=== PATIENT | male | born 1960 | race African-American/Black ===

== ENCOUNTER 2017-11-06 23:19 | Emergency (ER) | payer MEDICAID, OTHER ==
[~2017-11-06] VITALS: Ht 180.3 cm; Wt 127.3 kg
[2017-11-06] MEDS ORDERED: HYDR-4031 PO (23:31)
[2017-11-06] MEDS ORDERED: ASPI-1182 PO (23:31)
[2017-11-06] MEDS ORDERED: HYDR25TA PO (23:31)
[2017-11-07] MEDS ORDERED: NAPROXEN 250 MG TABLET PO ONE (01:30)
[2017-11-07] MEDS ORDERED: AMOX TR/POT CLAV 875 MG/125 MG TABLET PO ONE (02:45)
[2017-11-07 03:03] VITALS: BP 132/88
== END 2017-11-07 03:25 | disposition home or self-care (01) ==
LOC: EMS 23:19
DX: H66.92 Otitis media, unspecified, left ear (principal); H72.2X2 Other marginal perforations of tympanic membrane, left ear; I10 Essential (primary) hypertension; F17.210 Nicotine dependence, cigarettes, uncomplicated
CPT/HCPCS: 99283

== ENCOUNTER 2022-02-18 14:38 | Emergency (ER) | payer OTHER ==
[~2022-02-18] VITALS: Ht 180.3 cm; Wt 125.0 kg
[~2022-02-18 14:38] MED LIST: ASPI-1444 PO; HYDR-4808 PO; HYDR25TA2 PO
[2022-02-18] MEDS ORDERED: ATOR20TA65 PO (14:43)
[2022-02-18] MEDS ORDERED: LISI20TA24 PO (14:43)
[2022-02-18] MEDS ORDERED: FLUT12AE20 PO (14:43)
[2022-02-18] MEDS ORDERED: CARV12.530 PO (14:43)
[2022-02-18] MEDS ORDERED: SPIR-37 PO (14:43)
[2022-02-18] MEDS ORDERED: FURO40TA5 PO (14:43)
[2022-02-18] MEDS ORDERED: KETOROLAC TROMETHAMINE 30 MG/ML VIAL IVP ONE (15:30)
[2022-02-18] MEDS ORDERED: SODIUM CHLORIDE 0.9% 1,000 ML IV ONE (15:30)
[2022-02-18 15:38] LABS: BASOPHILS % (AUTO) 0.6 % (0.0-2.0); EOSINOPHILS % (AUTO) 3.6 % (1.0-6.0); HEMATOCRIT 45.7 % (41-53); HEMOGLOBIN 14.7 g/dL (13.5-17.5); LYMPHOCYTES # (AUTO) 1.4 K/uL (1.0-4.8); LYMPHOCYTES % (AUTO) 32.3 % (22.0-44.0); MEAN CORPUSCULAR HEMOGLOBIN 30.5 pg (26.0-34.0); MEAN CORPUSCULAR HGB CONC 32.3 G/dL (31.0-37.0); MEAN CORPUSCULAR VOLUME 94 fL (80-100); MONOCYTES # (AUTO) 0.5 K/uL (0.1-1.0); MONOCYTES % (AUTO) 10.3 % (2.0-9.0); NEUTROPHILS # (AUTO) 2.3 K/uL (1.8-7.7); NEUTROPHILS % (AUTO) 53.2 % (40.0-70.0); PLATELET COUNT (AUTO) 187 K/uL (150-450); RED BLOOD CELL COUNT(AUTO) 4.84 MIL/uL (4.50-5.90); RED CELL DISTRIBUTION WIDTH 15.5 % (11.5-14.5)
[2022-02-18 15:44] LABS: ANION GAP 6 mmol/L (8-16); CALCIUM, TOTAL 9.1 mg/dL (8.8-10.5); CARBON DIOXIDE 26 mmol/L (22-29); CHLORIDE 106 mmol/L (98-107); GLUCOSE,RANDOM 116 mg/dL (70-110); POTASSIUM 3.5 mmol/L (3.5-5.1); SODIUM SERUM 138 mmol/L (136-145); UREA NITROGEN, BLOOD 9 mg/dL (7-18)
[2022-02-18 15:46] LABS: GLOMERULAR FILTR. RATE CALC > 60 mL/min (>60)
[2022-02-18 15:50] LABS: ALANINE AMINOTRANSFERASE 19 U/L (12-78); ALKALINE PHOSPHATASE 52 U/L (46-116); ASPARTATE AMINOTRANSFERASE 31 U/L (15-37); LIPASE 101 U/L (73-393)
[2022-02-18 16:46] LABS: APPEARANCE,URINE CLEAR (CLEAR); GLUCOSE, URINE (UA) NEGATIVE (NEGATIVE); KETONES,URINE NEGATIVE (NEGATIVE); LEUKOCYTE ESTERASE ,URINE SMALL (NEGATIVE); NITRATE,URINE NEGATIVE (NEGATIVE); OCCULT BLOOD,URINE MODERATE (NEGATIVE); PROTEIN,URINE 100-200,SEE CONFIRM mg/dL (NEGATIVE); SPECIFIC GRAVITIY, URINE 1.042 (1.003-1.030)
[2022-02-18 16:54] LABS: BILIRUBIN,URINE SMALL (NEGATIVE)
[2022-02-18 17:06] LABS: BACTERIA,URINE Few /HPF (None Seen)
[2022-02-18 17:07] LABS: AMORPHOUS SEDIMENT,UR Few /LPF (None Seen); SULFOSALICYLIC ACID,URINE 2+ (Negative); YEAST,URINE Few /HPF (None Seen)
[2022-02-18] MEDS ORDERED: CEFD300C18 PO (17:45)
[2022-02-18] MEDS ORDERED: CefTRIAXone 1 GM/DEXTROSE 50 ML IV ONE (17:45)
[2022-02-18 18:25] VITALS: BP 121/82
== END 2022-02-18 18:55 | disposition home or self-care (01) ==
LOC: EMS 14:44
DX: N39.0 Urinary tract infection, site not specified (principal); E78.00 Pure hypercholesterolemia, unspecified; F10.20 Alcohol dependence, uncomplicated; F17.210 Nicotine dependence, cigarettes, uncomplicated; I11.0 Hypertensive heart disease with heart failure; I50.9 Heart failure, unspecified; R10.9 Unspecified abdominal pain
CPT/HCPCS: 99284; 74176; 96365; 96361; 96375; 80053; 81001; 81002; 83690; 85025; 36415; 87086; J1885; J7030; 96374

== ENCOUNTER 2022-03-01 07:06 | Emergency (ER) | payer OTHER ==
[~2022-03-01] VITALS: Ht 180.3 cm; Wt 104.5 kg
[~2022-03-01 07:06] MED LIST changes: +ATOR20TA65 PO; +CARV12.530 PO; +CEFD300C18 PO; +FLUT12AE20 PO; +FURO40TA5 PO; -HYDR-4808 PO; -HYDR25TA2 PO; +LISI20TA24 PO; +SPIR-37 PO
[2022-03-01 10:17] LABS: APPEARANCE,URINE CLEAR (CLEAR); BILIRUBIN,URINE NEGATIVE (NEGATIVE); GLUCOSE, URINE (UA) NEGATIVE (NEGATIVE); KETONES,URINE NEGATIVE (NEGATIVE); LEUKOCYTE ESTERASE ,URINE NEGATIVE (NEGATIVE); NITRATE,URINE NEGATIVE (NEGATIVE); OCCULT BLOOD,URINE MODERATE (NEGATIVE); PROTEIN,URINE 30-70 mg/dL (NEGATIVE); SPECIFIC GRAVITIY, URINE 1.024 (1.003-1.030)
[2022-03-01 10:22] LABS: EOSINOPHILS % (AUTO) 3.3 % (1.0-6.0); HEMATOCRIT 43.9 % (41-53); HEMOGLOBIN 14.3 g/dL (13.5-17.5); LYMPHOCYTES # (AUTO) 1.6 K/uL (1.0-4.8); LYMPHOCYTES % (AUTO) 27.8 % (22.0-44.0); MEAN CORPUSCULAR HEMOGLOBIN 30.6 pg (26.0-34.0); MEAN CORPUSCULAR HGB CONC 32.5 G/dL (31.0-37.0); MEAN CORPUSCULAR VOLUME 94 fL (80-100); MONOCYTES # (AUTO) 0.6 K/uL (0.1-1.0); MONOCYTES % (AUTO) 11.2 % (2.0-9.0); NEUTROPHILS # (AUTO) 3.3 K/uL (1.8-7.7); NEUTROPHILS % (AUTO) 56.7 % (40.0-70.0); PLATELET COUNT (AUTO) 151 K/uL (150-450); RED BLOOD CELL COUNT(AUTO) 4.67 MIL/uL (4.50-5.90); RED CELL DISTRIBUTION WIDTH 15.7 % (11.5-14.5)
[2022-03-01 10:28] LABS: ANION GAP 6 mmol/L (8-16); CARBON DIOXIDE 26 mmol/L (22-29); CHLORIDE 105 mmol/L (98-107); CREATININE 1.02 mg/dL (0.60-1.30); GLUCOSE,RANDOM 92 mg/dL (70-110); POTASSIUM 3.6 mmol/L (3.5-5.1); SODIUM SERUM 137 mmol/L (136-145); UREA NITROGEN, BLOOD 8 mg/dL (7-18)
[2022-03-01 10:32] LABS: GLOMERULAR FILTR. RATE CALC > 60 mL/min (>60)
[2022-03-01 10:35] LABS: ALANINE AMINOTRANSFERASE 22 U/L (12-78); ALBUMIN 2.9 g/dL (3.4-5.0); ALKALINE PHOSPHATASE 53 U/L (46-116); ASPARTATE AMINOTRANSFERASE 13 U/L (15-37); TOTAL PROTEIN, SERUM 6.6 g/dL (6.4-8.2)
[2022-03-01 10:44] LABS: BACTERIA,URINE None Seen /HPF (None Seen); WBC,URINE None Seen /HPF (0-5)
[2022-03-01 10:45] LABS: CALCIUM OXALATE CRYSTALS,UR Few /LPF (None Seen)
[2022-03-01] MEDS ORDERED: KETOROLAC TROMETHAMINE 30 MG/ML VIAL IM ONE (13:15)
[2022-03-01 13:36] VITALS: BP 145/90
[2022-03-01] MEDS ORDERED: CYCL-448 PO (14:03)
== END 2022-03-01 14:11 | disposition home or self-care (01) ==
LOC: EMS 07:06
DX: M54.9 Dorsalgia, unspecified (principal); I11.0 Hypertensive heart disease with heart failure; I50.9 Heart failure, unspecified; E78.00 Pure hypercholesterolemia, unspecified; F17.210 Nicotine dependence, cigarettes, uncomplicated; Z89.612 Acquired absence of left leg above knee
CPT/HCPCS: 99284; 80053; 81001; 85025; 36415; 74022; 96372; J1885

== ENCOUNTER 2022-04-23 15:26 | Emergency (ER) | payer OTHER ==
[~2022-04-23] VITALS: Ht 180.3 cm; Wt 109.1 kg
[~2022-04-23 15:26] MED LIST changes: +CYCL-448 PO
[2022-04-23 17:27] LABS: BASOPHILS % (AUTO) 0.7 % (0.0-2.0); EOSINOPHILS % (AUTO) 2.5 % (1.0-6.0); HEMATOCRIT 39.9 % (41-53); HEMOGLOBIN 12.9 g/dL (13.5-17.5); LYMPHOCYTES # (AUTO) 1.3 K/uL (1.0-4.8); LYMPHOCYTES % (AUTO) 18.8 % (22.0-44.0); MEAN CORPUSCULAR HGB CONC 32.3 G/dL (31.0-37.0); MEAN CORPUSCULAR VOLUME 96 fL (80-100); MONOCYTES # (AUTO) 0.7 K/uL (0.1-1.0); NEUTROPHILS # (AUTO) 4.8 K/uL (1.8-7.7); PLATELET COUNT (AUTO) 240 K/uL (150-450); RED BLOOD CELL COUNT(AUTO) 4.16 MIL/uL (4.50-5.90); RED CELL DISTRIBUTION WIDTH 17.6 % (11.5-14.5)
[2022-04-23 17:40] LABS: PROTHROMBIN TIME 10.9 SEC (9.4-11.6)
[2022-04-23 17:42] LABS: ANION GAP 9 mmol/L (8-16); CARBON DIOXIDE 22 mmol/L (22-29); CHLORIDE 106 mmol/L (98-107); CREATININE 0.97 mg/dL (0.60-1.30); GLOMERULAR FILTR. RATE CALC > 60 mL/min (>60); GLUCOSE,RANDOM 98 mg/dL (70-110); POTASSIUM 3.8 mmol/L (3.5-5.1); SODIUM SERUM 137 mmol/L (136-145); UREA NITROGEN, BLOOD 8 mg/dL (7-18)
[2022-04-23 17:44] LABS: B-TYPE NATRIURETIC PEPTIDE 778 pg/mL (0-100)
[2022-04-23 17:47] LABS: ALANINE AMINOTRANSFERASE 10 U/L (12-78); ALBUMIN 2.7 g/dL (3.4-5.0); ALKALINE PHOSPHATASE 68 U/L (46-116); ASPARTATE AMINOTRANSFERASE 19 U/L (15-37); BILIRUBIN,TOTAL 0.7 mg/dL (0.1-1.0); TOTAL PROTEIN, SERUM 6.7 g/dL (6.4-8.2)
[2022-04-23 19:05] VITALS: BP 133/89
[2022-04-23] MEDS ORDERED: FUROSEMIDE 20 MG/2 ML VIAL IVP ONE (21:45)
== END 2022-04-23 22:28 | disposition home or self-care (01) ==
LOC: EMS 15:28
DX: I11.0 Hypertensive heart disease with heart failure (principal); I50.9 Heart failure, unspecified; E78.00 Pure hypercholesterolemia, unspecified; F10.20 Alcohol dependence, uncomplicated; F17.210 Nicotine dependence, cigarettes, uncomplicated
CPT/HCPCS: 71045; 80053; 82550; 83880; 84484; 85025; 85379; 85610; 85730; 87040; 93005; 99285; 36415-L1; 36415-TC

== ENCOUNTER 2023-02-21 13:29 | Inpatient (IN) | payer OTHER ==
[~2023-02-21] VITALS: Ht 172.7 cm; Wt 88.6 kg
[2023-02-21] MEDS ORDERED: BUPR-113 PO (13:44)
[2023-02-21] MEDS ORDERED: IPRATROPIUM BROMIDE 0.5 MG/2.5 ML NEB SOLUTION NEB ONE (14:15)
[2023-02-21] MEDS ORDERED: MethylPREDNISolone SOD SUCC 125 MG/2 ML VIAL IVP ONE (14:15)
[2023-02-21] MEDS ORDERED: ALBUTEROL SULFATE HFA 90 MCG/PUFF 8 GM INHALER IH ONE (14:15)
[2023-02-21] MEDS ORDERED: FUROSEMIDE 40 MG/4 ML VIAL IVP ONE (14:15)
[2023-02-21 14:24] LABS: BASOPHILS % (AUTO) 0.6 % (0.0-2.0); HEMATOCRIT 36.6 % (41-53); HEMOGLOBIN 11.6 g/dL (13.5-17.5); LYMPHOCYTES % (AUTO) 14.5 % (22.0-44.0); MEAN CORPUSCULAR HEMOGLOBIN 27.5 pg (26.0-34.0); MEAN CORPUSCULAR HGB CONC 31.6 G/dL (31.0-37.0); MEAN CORPUSCULAR VOLUME 87 fL (80-100); MONOCYTES # (AUTO) 0.4 K/uL (0.1-1.0); MONOCYTES % (AUTO) 6.7 % (2.0-9.0); NEUTROPHILS # (AUTO) 5.1 K/uL (1.8-7.7); NEUTROPHILS % (AUTO) 76.2 % (40.0-70.0); PLATELET COUNT (AUTO) 237 K/uL (150-450); RED BLOOD CELL COUNT(AUTO) 4.21 MIL/uL (4.50-5.90); RED CELL DISTRIBUTION WIDTH 19.5 % (11.5-14.5); WHITE BLOOD COUNT (AUTO) 6.6 K/uL (4.5-11.0)
[2023-02-21 14:46] LABS: ANION GAP 12 mmol/L (8-16); CALCIUM, TOTAL 9.5 mg/dL (8.8-10.5); CARBON DIOXIDE 23 mmol/L (22-29); CHLORIDE 107 mmol/L (98-107); GLOMERULAR FILTR. RATE CALC > 60 mL/min (>60); GLUCOSE,RANDOM 112 mg/dL (70-110); POTASSIUM 4.7 mmol/L (3.5-5.1); SODIUM SERUM 142 mmol/L (136-145); UREA NITROGEN, BLOOD 9 mg/dL (7-18)
[2023-02-21 14:47] VITALS: PULSE 84; RESP 23; O2SAT 92
[2023-02-21 14:47] LABS: COVID AG,FIA SOURCE NASAL SWAB
[2023-02-21 14:59] LABS: ALANINE AMINOTRANSFERASE 15 U/L (12-78); ALBUMIN 2.9 g/dL (3.4-5.0); ALKALINE PHOSPHATASE 91 U/L (46-116); ASPARTATE AMINOTRANSFERASE 15 U/L (15-37); BILIRUBIN,TOTAL 1.2 mg/dL (0.1-1.0); TOTAL PROTEIN, SERUM 7.6 g/dL (6.4-8.2)
[2023-02-21 15:02] VITALS: PULSE 88; RESP 23; O2SAT 96
[2023-02-21 15:07] LABS: TROPONIN I-HIGH SENSITIVITY 51 ng/L (<76)
[2023-02-21 15:22] LABS: SARS-COV2 (COVID) ANTIGEN,FIA Negative (Negative)
[2023-02-21 15:26] LABS: INFLUENZA TYPE A NEGATIVE FOR TYPE A (NEGATIVE); INFLUENZA TYPE B NEGATIVE FOR TYPE B (NEGATIVE)
[2023-02-21] MEDS: HEPARIN SODIUM,PORCINE 5,000 UNITS/ML VIAL SQ SCH ×2 (15:59→23:39)
[2023-02-21] MEDS ORDERED: OxyCODONE HCL/ACETAMINOPHEN 5-325 MG TABLET PO PRN (16:00)
[2023-02-21] MEDS ORDERED: ACETAMINOPHEN 325 MG TABLET PO PRN (16:00)
[2023-02-21] MEDS ORDERED: ZOLPIDEM TARTRATE 5 MG TABLET PO PRN (16:00)
[2023-02-21 17:41] VITALS: BP 136/67; PULSE 96; RESP 18; TEMP 98.4
[2023-02-21 20:00] VITALS: BP 158/112; PULSE 101; RESP 20; TEMP 98.2
[2023-02-21] MEDS ORDERED: OXYGEN THERAPY IH SCH (20:00)
[2023-02-21] MEDS: CARVEDILOL 6.25 MG TABLET PO SCH (20:23)
[2023-02-21] MEDS: FUROSEMIDE 40 MG/4 ML VIAL IVP SCH (20:23)
[2023-02-21] MEDS: DOCUSATE SODIUM 100 MG CAPSULE PO SCH (20:29)
[2023-02-21] MEDS ORDERED: ATORVASTATIN CALCIUM 20 MG TABLET PO SCH (21:00)
[2023-02-22 00:05] VITALS: BP 142/89; PULSE 89; RESP 20; TEMP 97.9
[2023-02-22 07:20] VITALS: BP 123/86; PULSE 83; RESP 17; TEMP 97.8
[2023-02-22] MEDS: CARVEDILOL 6.25 MG TABLET PO SCH (08:21)
[2023-02-22] MEDS: HEPARIN SODIUM,PORCINE 5,000 UNITS/ML VIAL SQ SCH ×2 (08:22→15:10)
[2023-02-22] MEDS: FUROSEMIDE 40 MG/4 ML VIAL IVP SCH (08:23)
[2023-02-22] MEDS: DOCUSATE SODIUM 100 MG CAPSULE PO SCH (08:23)
[2023-02-22] MEDS ORDERED: SPIRONOLACTONE 25 MG TABLET PO SCH (09:00)
[2023-02-22] MEDS ORDERED: FAMOTIDINE 20 MG TABLET PO SCH (09:00)
[2023-02-22] MEDS ORDERED: LISINOPRIL 10 MG TABLET PO SCH (09:00)
[2023-02-22] MEDS ORDERED: ASPIRIN 81 MG CHEWABLE TABLET PO SCH (09:00)
[2023-02-22 11:43] VITALS: BP 102/66; PULSE 81; RESP 18; TEMP 98
[2023-02-22 13:20] LABS: ANION GAP 10 mmol/L (8-16); CALCIUM, TOTAL 9.1 mg/dL (8.8-10.5); CARBON DIOXIDE 26 mmol/L (22-29); CHLORIDE 105 mmol/L (98-107); GLOMERULAR FILTR. RATE CALC > 60 mL/min (>60); GLUCOSE,RANDOM 143 mg/dL (70-110); POTASSIUM 4.3 mmol/L (3.5-5.1); SODIUM SERUM 141 mmol/L (136-145); UREA NITROGEN, BLOOD 16 mg/dL (7-18)
[2023-02-22 15:30] VITALS: BP 132/80; PULSE 86; RESP 18; TEMP 97.3
== END 2023-02-22 16:25 | disposition home or self-care (01) | DRG 194 ==
LOC: EMS 13:31 → 5S 16:28
PROVIDERS: ADMIT Internal Medicine; ATTEND Internal Medicine
DX: I11.0 Hypertensive heart disease with heart failure (principal); J96.01 Acute respiratory failure with hypoxia; E44.0 Moderate protein-calorie malnutrition; Z89.612 Acquired absence of left leg above knee; F17.210 Nicotine dependence, cigarettes, uncomplicated; I50.23 Acute on chronic systolic (congestive) heart failure; E78.00 Pure hypercholesterolemia, unspecified; Z20.822 Contact with and (suspected) exposure to COVID-19; R07.9 Chest pain, unspecified; Z68.29 Body mass index [BMI] 29.0-29.9, adult; Z79.899 Other long term (current) drug therapy
CPT/HCPCS: 71045; 80048; 80053; 83880; 84484; 85025; 87804; 93005; 93306; 94640; 99291; G0378; J1644; J1940; J2930; J3535; 36415-L1; 36415-TC

== ENCOUNTER 2023-08-27 08:12 | Inpatient (IN) | payer OTHER ==
[2023-08-27] VITALS (8 sets, daily range): BP systolic 96–120; BP diastolic 76–88; PULSE 56–145; RESP 18–24; TEMP 92.9–95.4; O2SAT 74–100
[~2023-08-27] VITALS: Ht 177.8 cm; Wt 72.0 kg
[~2023-08-27 08:12] MED LIST changes: +BUPR-113 PO; -CEFD300C18 PO
[2023-08-27 08:47] LABS: ABG BASE EXCESS -18.7 mmol/L (-2.0-3.0); ABG CARBOXYHEMOGLOBIN 1.6 % (0.0-1.5); ABG HCO3 10.2 mmol/L (22.0-26.0); ABG METHEMOGLOBIN 0.6 % (0.0-1.5); ABG OXYGEN CONTENT 13.6 mL/dL (15.0-23.0); ABG OXYHEMOGLOBIN 70.4 % (94.0-100.0); ABG PCO2 59 mmHg (35-45); ABG TOTAL HEMOGLOBIN 13.7 G/dL (12.0-18.0); PO2, ARTERIAL BG 58.3 mmHg (79.0-87.0); SOURCE, BLOOD GAS ARTERIAL; TEMPERATURE, FAHRENHEIT, BG 97.4 FAHREN (96.0-98.6)
[2023-08-27 08:48] LABS: ABG A-A DIFF O2 597.1 mmHg (10-20.0); ABG PH 6.963 (7.35-7.450); ALLEN TEST, BLOOD GAS Positive; SITE, BLOOD GAS RT RADIAL
[2023-08-27 08:49] LABS: COVID AG,FIA SOURCE NASAL SWAB
[2023-08-27 08:49] LABS: O2 DEVICE,BLOOD GAS VENTILATOR (ROOM AIR); PEEP,BG 5 cm H2O; VT, ABG 500 ml
[2023-08-27 08:52] LABS: APPEARANCE,URINE HAZY (CLEAR); BILIRUBIN,URINE NEGATIVE (NEGATIVE); COLOR,URINE YELLOW (YELLOW); GLUCOSE, URINE (UA) NEGATIVE (NEGATIVE); KETONES,URINE TRACE mg/dL (NEGATIVE); LEUKOCYTE ESTERASE ,URINE NEGATIVE (NEGATIVE); NITRATE,URINE NEGATIVE (NEGATIVE); OCCULT BLOOD,URINE MODERATE (NEGATIVE); PH,URINE 5.5 (5.0-8.0); PROTEIN,URINE 30-70 mg/dL (NEGATIVE); SPECIFIC GRAVITIY, URINE 1.028 (1.003-1.030)
[2023-08-27 09:03] LABS: BACTERIA,URINE None Seen /HPF (None Seen); SQUAMOUS EPITHELIAL CELL,UR Few /LPF (None Seen); WBC,URINE None Seen /HPF (0-5)
[2023-08-27] MEDS: ROCURONIUM BROMIDE 10 MG/ML 5 ML VIAL IVP ONE (09:05)
[2023-08-27] MEDS: ETOMIDATE 2 MG/ML 10 ML VIAL IVP ONE (09:06)
[2023-08-27] MEDS: SODIUM BICARBONATE [ADULT] 8.4% 50 MEQ/50 ML SYRINGE IVP ONE (09:07)
[2023-08-27 09:09] LABS: SARS-COV2 (COVID) ANTIGEN,FIA Negative (Negative)
[2023-08-27] MEDS: NITROGLYCERIN 2% (1 GM=INCH) OINTMENT PACKET TP ONE (09:11)
[2023-08-27] MEDS: FUROSEMIDE 40 MG/4 ML VIAL IVP ONE (09:12)
[2023-08-27 09:18] LABS: BASOPHILS % (AUTO) 0.2 % (0.0-2.0); EOSINOPHILS % (AUTO) 0.1 % (1.0-6.0); HEMATOCRIT 39.2 % (41-53); HEMOGLOBIN 12.1 g/dL (13.5-17.5); LYMPHOCYTES # (AUTO) 0.4 K/uL (1.0-4.8); LYMPHOCYTES % (AUTO) 3.4 % (22.0-44.0); MEAN CORPUSCULAR HEMOGLOBIN 29.4 pg (26.0-34.0); MEAN CORPUSCULAR HGB CONC 30.9 G/dL (31.0-37.0); MEAN CORPUSCULAR VOLUME 95 fL (80-100); MONOCYTES # (AUTO) 0.4 K/uL (0.1-1.0); MONOCYTES % (AUTO) 3.7 % (2.0-9.0); NEUTROPHILS % (AUTO) 92.6 % (40.0-70.0); PLATELET COUNT (AUTO) 284 K/uL (150-450); RED BLOOD CELL COUNT(AUTO) 4.11 MIL/uL (4.50-5.90); RED CELL DISTRIBUTION WIDTH 16.9 % (11.5-14.5); WHITE BLOOD COUNT (AUTO) 11.9 K/uL (4.5-11.0)
[2023-08-27 09:25] LABS: CALCIUM, TOTAL 8.7 mg/dL (8.8-10.5); CREATININE 1.7 mg/dL (0.60-1.30); POTASSIUM 3.7 mmol/L (3.5-5.1)
[2023-08-27 09:30] LABS: INR 1.6 (0.9-1.1); PROTHROMBIN TIME 16.4 SEC (9.4-11.6)
[2023-08-27 09:32] LABS: TROPONIN I-HIGH SENSITIVITY 49 ng/L (<76)
[2023-08-27 09:44] LABS: RBC MORPHOLOGY COMMENT NORMAL RBC MORPH
[2023-08-27] MEDS ORDERED: BISACODYL 10 MG RECTAL RECTAL SUPPOSITORY PR PRN (09:45)
[2023-08-27] MEDS ORDERED: ONDANSETRON HCL 4 MG/2 ML VIAL IVP PRN (09:45)
[2023-08-27 09:49] LABS: ALBUMIN 2.5 g/dL (3.4-5.0); BILIRUBIN,TOTAL 1.7 mg/dL (0.1-1.0); TOTAL PROTEIN, SERUM 7.1 g/dL (6.4-8.2)
[2023-08-27] MEDS ORDERED: PROPOFOL 1000 MG/ISO-OSM 100 ML ONE (10:26)
[2023-08-27] MEDS: PROPOFOL 1000 MG/ISO-OSM 100 ML IV PRN (10:39)
[2023-08-27] MEDS: CefTRIAXone 1 GM/DEXTROSE 50 ML IV SCH (10:40)
[2023-08-27 11:00] LABS: CALCIUM, TOTAL 8.9 mg/dL (8.8-10.5); CREATININE 1.47 mg/dL (0.60-1.30)
[2023-08-27] MEDS ORDERED: GABA-1181 PO (11:18)
[2023-08-27 12:24] LABS: ABG BASE EXCESS -4.4 mmol/L (-2.0-3.0); ABG CARBOXYHEMOGLOBIN 1.6 % (0.0-1.5); ABG METHEMOGLOBIN 0.7 % (0.0-1.5); ABG OXYGEN CONTENT 17.3 mL/dL (15.0-23.0); ABG OXYGEN SATURATION 89.4 % (95.0-98.0); ABG OXYHEMOGLOBIN 87.3 % (94.0-100.0); ABG PCO2 59 mmHg (35-45); ABG PH 7.217 (7.35-7.450); ABG TOTAL HEMOGLOBIN 14.1 G/dL (12.0-18.0); ALLEN TEST, BLOOD GAS Positive; O2 DEVICE,BLOOD GAS VENTILATOR (ROOM AIR); PO2, ARTERIAL BG 69.8 mmHg (79.0-87.0); SITE, BLOOD GAS RT RADIAL; SOURCE, BLOOD GAS ARTERIAL; TEMPERATURE, FAHRENHEIT, BG 98.3 FAHREN (96.0-98.6); VT, ABG 500 ml
[2023-08-27 12:25] LABS: PEEP,BG 5 cm H2O
[2023-08-27 12:44] LABS: TROPONIN I-HIGH SENSITIVITY 55 ng/L (<76)
[2023-08-27] MEDS ORDERED: SPIRONOLACTONE 25 MG TABLET NG SCH (13:15)
[2023-08-27] MEDS: FentaNYL CIT 1000MCG/0.9% NACL 100 ML IV PRN (13:57)
[2023-08-27] MEDS: HEPARIN SODIUM,PORCINE 5,000 UNITS/ML VIAL SQ SCH (16:58)
[2023-08-27] MEDS: BUMETANIDE 0.25 MG/ML 4 ML VIAL IVP SCH (16:58)
[2023-08-27 18:14] LABS: PH,URINE DRUG SCREEN 5.5 (5.0-8.0)
[2023-08-27 18:22] LABS: AMPHET/METH SCREEN,URINE NEGATIVE (NEGATIVE); BARBITURATE SCREEN, URINE NEGATIVE (NEGATIVE); BENZODIAZEPINES SCREEN,URINE NEGATIVE (NEGATIVE); CANNABINOID SCREEN,URINE NEGATIVE (NEGATIVE); COCAINE SCREEN,URINE NEGATIVE (NEGATIVE); METHADONE SCREEN, URINE NEGATIVE (NEGATIVE); OPIATE SCREEN,URINE NEGATIVE (NEGATIVE); PHENCYCLIDINE SCREEN,URINE NEGATIVE (NEGATIVE)
[2023-08-27 18:23] LABS: ALCOHOL, URINE DRUG SCREEN NEGATIVE (NEGATIVE)
[2023-08-27 19:16] LABS: ABG BASE EXCESS -0.3 mmol/L (-2.0-3.0); ABG CARBOXYHEMOGLOBIN 0.9 % (0.0-1.5); ABG HCO3 24.3 mmol/L (22.0-26.0); ABG OXYGEN CONTENT 19.1 mL/dL (15.0-23.0); ABG OXYHEMOGLOBIN 96.1 % (94.0-100.0); ABG PCO2 34 mmHg (35-45); ABG PH 7.463 (7.35-7.450); ABG TOTAL HEMOGLOBIN 14.1 G/dL (12.0-18.0); PO2, ARTERIAL BG 75.4 mmHg (79.0-87.0); SOURCE, BLOOD GAS ARTERIAL; TEMPERATURE, FAHRENHEIT, BG 91.2 FAHREN (96.0-98.6)
[2023-08-27 19:17] LABS: ABG A-A DIFF O2 321.3 mmHg (10-20.0); ALLEN TEST, BLOOD GAS Positive; O2 DEVICE,BLOOD GAS VENT (ROOM AIR); PEEP,BG 5 cm H2O; SITE, BLOOD GAS LFT RADIAL; VT, ABG 500 ml
[2023-08-27] MEDS: CARVEDILOL 3.125 MG TABLET NG SCH (20:07)
[2023-08-27] MEDS: CHLORHEXIDINE GLUCONATE 2% TOWELETTE [2'S/6'S] TP SCH (20:23)
[2023-08-27] MEDS: DOCUSATE SODIUM 100 MG CAPSULE PO SCH (20:23)
[2023-08-27 22:47] LABS: ALANINE AMINOTRANSFERASE 76 U/L (12-78); ALBUMIN 2.2 g/dL (3.4-5.0); ALKALINE PHOSPHATASE 58 U/L (46-116); ANION GAP 9 mmol/L (8-16); ASPARTATE AMINOTRANSFERASE 153 U/L (15-37); BILIRUBIN,TOTAL 1.2 mg/dL (0.1-1.0); CALCIUM, TOTAL 8.1 mg/dL (8.8-10.5); CARBON DIOXIDE 28 mmol/L (22-29); CHLORIDE 105 mmol/L (98-107); CREATININE 1.31 mg/dL (0.60-1.30); GLOMERULAR FILTR. RATE CALC > 60 mL/min (>60); GLUCOSE,RANDOM 111 mg/dL (70-110); PHOSPHORUS 3.5 mg/dL (2.5-4.9); POTASSIUM 4.4 mmol/L (3.5-5.1); SODIUM SERUM 142 mmol/L (136-145); TOTAL PROTEIN, SERUM 6.2 g/dL (6.4-8.2); UREA NITROGEN, BLOOD 25 mg/dL (7-18)
[2023-08-28] VITALS (18 sets, daily range): BP systolic 90–162; BP diastolic 43–73; PULSE 46–87; RESP 24–25; TEMP 89.8–98.3; O2SAT 95–100
[2023-08-28 00:56] LABS: ABG A-A DIFF O2 267.4 mmHg (10-20.0); ABG BASE EXCESS -2.5 mmol/L (-2.0-3.0); ABG CARBOXYHEMOGLOBIN 0.9 % (0.0-1.5); ABG HCO3 22.7 mmol/L (22.0-26.0); ABG METHEMOGLOBIN 0.1 % (0.0-1.5); ABG OXYGEN CONTENT 19.3 mL/dL (15.0-23.0); ABG OXYGEN SATURATION 94.8 % (95.0-98.0); ABG OXYHEMOGLOBIN 93.9 % (94.0-100.0); ABG PCO2 31 mmHg (35-45); ABG PH 7.457 (7.35-7.450); ABG TOTAL HEMOGLOBIN 14.6 G/dL (12.0-18.0); ALLEN TEST, BLOOD GAS Positive; O2 DEVICE,BLOOD GAS VENT (ROOM AIR); PEEP,BG 5 cm H2O; PO2, ARTERIAL BG 59.7 mmHg (79.0-87.0); SITE, BLOOD GAS LFT RADIAL; SOURCE, BLOOD GAS ARTERIAL; TEMPERATURE, FAHRENHEIT, BG 89.7 FAHREN (96.0-98.6); VT, ABG 500 ml
[2023-08-28] MEDS: PROPOFOL 1000 MG/ISO-OSM 100 ML IV PRN (01:24)
[2023-08-28] MEDS: IPRATROPIUM BROMIDE 0.5 MG/2.5 ML NEB SOLUTION NEB PRN (04:36)
[2023-08-28] MEDS: ALBUTEROL SULFATE 2.5 MG/0.5 ML NEB SOLUTION NEB PRN (04:36)
[2023-08-28 06:20] LABS: EOSINOPHILS % (AUTO) 0 % (1.0-6.0); NEUTROPHILS # (AUTO) 8.4 K/uL (1.8-7.7); WHITE BLOOD COUNT (AUTO) 9.7 K/uL (4.5-11.0)
[2023-08-28 06:24] LABS: BASOPHILS % (AUTO) 0.2 % (0.0-2.0); HEMATOCRIT 42.3 % (41-53); HEMOGLOBIN 13.9 g/dL (13.5-17.5); LYMPHOCYTES # (AUTO) 0.6 K/uL (1.0-4.8); LYMPHOCYTES % (AUTO) 6.4 % (22.0-44.0); MEAN CORPUSCULAR HEMOGLOBIN 29.9 pg (26.0-34.0); MEAN CORPUSCULAR HGB CONC 32.9 G/dL (31.0-37.0); MEAN CORPUSCULAR VOLUME 91 fL (80-100); MONOCYTES # (AUTO) 0.6 K/uL (0.1-1.0); MONOCYTES % (AUTO) 6.6 % (2.0-9.0); PLATELET COUNT (AUTO) 183 K/uL (150-450); RED BLOOD CELL COUNT(AUTO) 4.65 MIL/uL (4.50-5.90); RED CELL DISTRIBUTION WIDTH 15.9 % (11.5-14.5)
[2023-08-28 06:26] LABS: NEUTROPHILS % (AUTO) 86.8 % (40.0-70.0)
[2023-08-28 06:43] LABS: ALANINE AMINOTRANSFERASE 95 U/L (12-78); ALBUMIN 2.4 g/dL (3.4-5.0); ALKALINE PHOSPHATASE 63 U/L (46-116); ANION GAP 11 mmol/L (8-16); ASPARTATE AMINOTRANSFERASE 168 U/L (15-37); BILIRUBIN,TOTAL 1.5 mg/dL (0.1-1.0); CALCIUM, TOTAL 8.5 mg/dL (8.8-10.5); CARBON DIOXIDE 26 mmol/L (22-29); CHLORIDE 105 mmol/L (98-107); CREATININE 1.17 mg/dL (0.60-1.30); GLOMERULAR FILTR. RATE CALC > 60 mL/min (>60); GLUCOSE,RANDOM 99 mg/dL (70-110); PHOSPHORUS 3.3 mg/dL (2.5-4.9); POTASSIUM 4.4 mmol/L (3.5-5.1); SODIUM SERUM 142 mmol/L (136-145); TOTAL PROTEIN, SERUM 6.9 g/dL (6.4-8.2); UREA NITROGEN, BLOOD 27 mg/dL (7-18)
[2023-08-28 07:46] LABS: ABG A-A DIFF O2 194.3 mmHg (10-20.0); ABG BASE EXCESS -1.2 mmol/L (-2.0-3.0); ABG CARBOXYHEMOGLOBIN 0.9 % (0.0-1.5); ABG HCO3 23.6 mmol/L (22.0-26.0); ABG METHEMOGLOBIN 0.1 % (0.0-1.5); ABG OXYGEN CONTENT 18.6 mL/dL (15.0-23.0); ABG OXYGEN SATURATION 94.4 % (95.0-98.0); ABG OXYHEMOGLOBIN 93.5 % (94.0-100.0); ABG PCO2 33 mmHg (35-45); ABG TOTAL HEMOGLOBIN 14.1 G/dL (12.0-18.0); ALLEN TEST, BLOOD GAS Positive; O2 DEVICE,BLOOD GAS VENTILATOR (ROOM AIR); PEEP,BG 5 cm H2O; PO2, ARTERIAL BG 57.7 mmHg (79.0-87.0); SITE, BLOOD GAS RT RADIAL; SOURCE, BLOOD GAS ARTERIAL; TEMPERATURE, FAHRENHEIT, BG 90.1 FAHREN (96.0-98.6); VT, ABG 500 ml
[2023-08-28 07:47] LABS: SPONTANEOUS VT, BG 504 ml
[2023-08-28] MEDS: SPIRONOLACTONE 25 MG TABLET NG SCH (08:12)
[2023-08-28] MEDS: PANTOPRAZOLE SODIUM 40 MG/VIAL IVP SCH (08:12)
[2023-08-28] MEDS ORDERED: PERFLUTREN PROTEIN-A MICROSPHERES 0.22 MG/ML 3 ML VIAL IVP ONE (08:45)
[2023-08-28] MEDS: PERFLUTREN PROTEIN-A MICROSPHERES 0.22 MG/ML 3 ML VIAL IVP ONE (09:43)
[2023-08-28 11:20] LABS: ALANINE AMINOTRANSFERASE 112 U/L (12-78); ALBUMIN 2.3 g/dL (3.4-5.0); ALKALINE PHOSPHATASE 58 U/L (46-116); ANION GAP 10 mmol/L (8-16); ASPARTATE AMINOTRANSFERASE 169 U/L (15-37); BILIRUBIN,TOTAL 1.6 mg/dL (0.1-1.0); CALCIUM, TOTAL 8.5 mg/dL (8.8-10.5); CARBON DIOXIDE 28 mmol/L (22-29); CHLORIDE 107 mmol/L (98-107); CREATININE 1.23 mg/dL (0.60-1.30); GLOMERULAR FILTR. RATE CALC > 60 mL/min (>60); GLUCOSE,RANDOM 91 mg/dL (70-110); PHOSPHORUS 3.2 mg/dL (2.5-4.9); POTASSIUM 3.8 mmol/L (3.5-5.1); SODIUM SERUM 145 mmol/L (136-145); TOTAL PROTEIN, SERUM 6.9 g/dL (6.4-8.2); UREA NITROGEN, BLOOD 28 mg/dL (7-18)
[2023-08-28 17:15] LABS: ALANINE AMINOTRANSFERASE 142 U/L (12-78); ALBUMIN 2.1 g/dL (3.4-5.0); ALKALINE PHOSPHATASE 56 U/L (46-116); ANION GAP 9 mmol/L (8-16); ASPARTATE AMINOTRANSFERASE 222 U/L (15-37); BILIRUBIN,TOTAL 1.6 mg/dL (0.1-1.0); CALCIUM, TOTAL 8.2 mg/dL (8.8-10.5); CARBON DIOXIDE 30 mmol/L (22-29); CHLORIDE 105 mmol/L (98-107); CREATININE 1.21 mg/dL (0.60-1.30); GLOMERULAR FILTR. RATE CALC > 60 mL/min (>60); GLUCOSE,RANDOM 79 mg/dL (70-110); PHOSPHORUS 2.8 mg/dL (2.5-4.9); POTASSIUM 3.5 mmol/L (3.5-5.1); SODIUM SERUM 144 mmol/L (136-145); TOTAL PROTEIN, SERUM 6.1 g/dL (6.4-8.2); UREA NITROGEN, BLOOD 31 mg/dL (7-18)
[2023-08-28] MEDS ORDERED: NOREPINEPHRINE 8 MG/0.9 % NACL 250 ML IV ONE (17:23)
[2023-08-28] MEDS ORDERED: NOREPINEPHRINE 8 MG/0.9 % NACL 250 ML IV PRN (17:30)
[2023-08-28] MEDS ORDERED: SODIUM CHLORIDE 0.9% 500 ML IV ONE (18:38)
[2023-08-28] MEDS ORDERED: VASOPRESSIN 40 UNITS in DEXTROSE 5%-WATER 98 ML IV PRN (18:45)
[2023-08-28] MEDS: PHENYLEPHRINE 200 MG/D5%-WATER 250 ML IV PRN (20:05)
[2023-08-28] MEDS: BUMETANIDE 0.25 MG/ML 4 ML VIAL IVP SCH (21:09)
[2023-08-29] VITALS (14 sets, daily range): BP systolic 112–137; BP diastolic 44–57; PULSE 48–89; RESP 24; TEMP 98.4–99.1; O2SAT 94–99
[2023-08-29] MEDS: NOREPINEPHRINE 8 MG/0.9 % NACL 250 ML IV PRN (05:11)
[2023-08-29 05:18] LABS: BASOPHILS % (AUTO) 0.2 % (0.0-2.0); EOSINOPHILS % (AUTO) 0.2 % (1.0-6.0); HEMATOCRIT 35.5 % (41-53); HEMOGLOBIN 11.8 g/dL (13.5-17.5); LYMPHOCYTES # (AUTO) 0.8 K/uL (1.0-4.8); LYMPHOCYTES % (AUTO) 8.2 % (22.0-44.0); MEAN CORPUSCULAR HEMOGLOBIN 29.9 pg (26.0-34.0); MEAN CORPUSCULAR HGB CONC 33.2 G/dL (31.0-37.0); MEAN CORPUSCULAR VOLUME 90 fL (80-100); MONOCYTES # (AUTO) 0.7 K/uL (0.1-1.0); MONOCYTES % (AUTO) 7.2 % (2.0-9.0); NEUTROPHILS # (AUTO) 8.6 K/uL (1.8-7.7); NEUTROPHILS % (AUTO) 84.2 % (40.0-70.0); PLATELET COUNT (AUTO) 206 K/uL (150-450); RED BLOOD CELL COUNT(AUTO) 3.93 MIL/uL (4.50-5.90); RED CELL DISTRIBUTION WIDTH 16.2 % (11.5-14.5); WHITE BLOOD COUNT (AUTO) 10.3 K/uL (4.5-11.0)
[2023-08-29 05:36] LABS: ANION GAP 11 mmol/L (8-16); CALCIUM, TOTAL 8.1 mg/dL (8.8-10.5); CARBON DIOXIDE 27 mmol/L (22-29); CHLORIDE 105 mmol/L (98-107); GLOMERULAR FILTR. RATE CALC > 60 mL/min (>60); GLUCOSE,RANDOM 88 mg/dL (70-110); PHOSPHORUS 2.7 mg/dL (2.5-4.9); POTASSIUM 3.1 mmol/L (3.5-5.1); SODIUM SERUM 143 mmol/L (136-145); UREA NITROGEN, BLOOD 32 mg/dL (7-18)
[2023-08-29 05:52] LABS: TROPONIN I-HIGH SENSITIVITY 79 ng/L (<76)
[2023-08-29] MEDS: POTASSIUM CHL 10 MEQ/WATER 50 ML IV SCH ×2 (06:16→13:46)
[2023-08-29] MEDS: POTASSIUM CHLORIDE 20 MEQ ER TABLET NG ONE (06:16)
[2023-08-29 12:42] LABS: ANION GAP 9 mmol/L (8-16); CALCIUM, TOTAL 7.8 mg/dL (8.8-10.5); CARBON DIOXIDE 28 mmol/L (22-29); CHLORIDE 108 mmol/L (98-107); CREATININE 1.21 mg/dL (0.60-1.30); GLOMERULAR FILTR. RATE CALC > 60 mL/min (>60); GLUCOSE,RANDOM 83 mg/dL (70-110); PHOSPHORUS 2.6 mg/dL (2.5-4.9); POTASSIUM 3.2 mmol/L (3.5-5.1); SODIUM SERUM 145 mmol/L (136-145); UREA NITROGEN, BLOOD 28 mg/dL (7-18)
[2023-08-29] MEDS: DOCUSATE SODIUM 100 MG/10 ML LIQUID UDCUP NG SCH (20:10)
[2023-08-30] VITALS (14 sets, daily range): BP systolic 106–127; BP diastolic 42–53; PULSE 45–87; RESP 24; TEMP 98.1–101; O2SAT 91–98
[2023-08-30 05:27] LABS: BASOPHILS % (AUTO) 0.5 % (0.0-2.0); EOSINOPHILS % (AUTO) 2.3 % (1.0-6.0); HEMATOCRIT 32.4 % (41-53); HEMOGLOBIN 10.7 g/dL (13.5-17.5); LYMPHOCYTES # (AUTO) 0.9 K/uL (1.0-4.8); LYMPHOCYTES % (AUTO) 13.1 % (22.0-44.0); MEAN CORPUSCULAR HEMOGLOBIN 29.9 pg (26.0-34.0); MEAN CORPUSCULAR HGB CONC 33.1 G/dL (31.0-37.0); MEAN CORPUSCULAR VOLUME 90 fL (80-100); MONOCYTES # (AUTO) 0.6 K/uL (0.1-1.0); MONOCYTES % (AUTO) 8.2 % (2.0-9.0); NEUTROPHILS # (AUTO) 5.3 K/uL (1.8-7.7); NEUTROPHILS % (AUTO) 75.9 % (40.0-70.0); PLATELET COUNT (AUTO) 179 K/uL (150-450); RED BLOOD CELL COUNT(AUTO) 3.59 MIL/uL (4.50-5.90); RED CELL DISTRIBUTION WIDTH 16.1 % (11.5-14.5)
[2023-08-30 06:00] LABS: ALANINE AMINOTRANSFERASE 105 U/L (12-78); ALKALINE PHOSPHATASE 48 U/L (46-116); ANION GAP 8 mmol/L (8-16); ASPARTATE AMINOTRANSFERASE 63 U/L (15-37); BILIRUBIN,TOTAL 1.3 mg/dL (0.1-1.0); CALCIUM, TOTAL 8.6 mg/dL (8.8-10.5); CARBON DIOXIDE 28 mmol/L (22-29); CHLORIDE 109 mmol/L (98-107); CREATININE 1.18 mg/dL (0.60-1.30); GLOMERULAR FILTR. RATE CALC > 60 mL/min (>60); GLUCOSE,RANDOM 83 mg/dL (70-110); POTASSIUM 3.3 mmol/L (3.5-5.1); SODIUM SERUM 145 mmol/L (136-145); UREA NITROGEN, BLOOD 27 mg/dL (7-18)
[2023-08-30] MEDS: QUEtiapine FUMARATE 25 MG TABLET NG SCH (09:12)
[2023-08-30] MEDS: POTASSIUM CHLORIDE 10% 40 MEQ/30 ML LIQUID UDCUP NG PRN (09:13)
[2023-08-30 09:34] LABS: PHOSPHORUS 2.4 mg/dL (2.5-4.9)
[2023-08-30] MEDS: ACETAMINOPHEN 325 MG TABLET PO PRN (14:32)
[2023-08-30 14:33] LABS: ANION GAP 9 mmol/L (8-16); CALCIUM, TOTAL 8.4 mg/dL (8.8-10.5); CARBON DIOXIDE 26 mmol/L (22-29); CHLORIDE 110 mmol/L (98-107); CREATININE 1.06 mg/dL (0.60-1.30); GLOMERULAR FILTR. RATE CALC > 60 mL/min (>60); GLUCOSE,RANDOM 78 mg/dL (70-110); PHOSPHORUS 1.9 mg/dL (2.5-4.9); POTASSIUM 3.3 mmol/L (3.5-5.1); SODIUM SERUM 145 mmol/L (136-145); UREA NITROGEN, BLOOD 24 mg/dL (7-18)
[2023-08-30] MEDS: ETHYL ALCOHOL 62% ANTISEPTIC NASAL SANITIZER 0.6 ML AMPUL NASAL SCH (21:11)
[2023-08-31] VITALS (14 sets, daily range): BP systolic 102–136; BP diastolic 47–67; PULSE 47–111; RESP 24–29; TEMP 98.3–100.5; O2SAT 95–100
[2023-08-31 06:30] LABS: BASOPHILS % (AUTO) 0.3 % (0.0-2.0); EOSINOPHILS % (AUTO) 2.5 % (1.0-6.0); HEMATOCRIT 31.9 % (41-53); HEMOGLOBIN 10.5 g/dL (13.5-17.5); LYMPHOCYTES # (AUTO) 0.7 K/uL (1.0-4.8); LYMPHOCYTES % (AUTO) 10.4 % (22.0-44.0); MEAN CORPUSCULAR HEMOGLOBIN 29.5 pg (26.0-34.0); MEAN CORPUSCULAR HGB CONC 32.7 G/dL (31.0-37.0); MEAN CORPUSCULAR VOLUME 90 fL (80-100); MONOCYTES # (AUTO) 0.7 K/uL (0.1-1.0); MONOCYTES % (AUTO) 10.5 % (2.0-9.0); NEUTROPHILS % (AUTO) 76.3 % (40.0-70.0); PLATELET COUNT (AUTO) 170 K/uL (150-450); RED BLOOD CELL COUNT(AUTO) 3.54 MIL/uL (4.50-5.90); RED CELL DISTRIBUTION WIDTH 16.5 % (11.5-14.5); WHITE BLOOD COUNT (AUTO) 6.5 K/uL (4.5-11.0)
[2023-08-31 06:33] LABS: ANION GAP 10 mmol/L (8-16); CALCIUM, TOTAL 8.9 mg/dL (8.8-10.5); CARBON DIOXIDE 26 mmol/L (22-29); CHLORIDE 111 mmol/L (98-107); CREATININE 1.03 mg/dL (0.60-1.30); GLOMERULAR FILTR. RATE CALC > 60 mL/min (>60); GLUCOSE,RANDOM 100 mg/dL (70-110); POTASSIUM 3.6 mmol/L (3.5-5.1); SODIUM SERUM 147 mmol/L (136-145); UREA NITROGEN, BLOOD 21 mg/dL (7-18)
[2023-08-31 06:37] LABS: PHOSPHORUS 2.6 mg/dL (2.5-4.9)
[2023-08-31] MEDS ORDERED: SODIUM CHLORIDE 0.9% 250 ML IV ONE (08:52)
[2023-08-31] MEDS: DEXMEDETOMIDINE HCL 400 MCG in SODIUM CHLORIDE 0.9% 96 ML IV PRN (08:55)
[2023-08-31] MEDS: POTASSIUM CHL 10 MEQ/WATER 50 ML IV PRN (14:57)
[2023-08-31] MEDS ORDERED: ROCURONIUM BROMIDE 10 MG/ML 5 ML VIAL IV ONE (16:32)
[2023-08-31] MEDS ORDERED: ETOMIDATE 2 MG/ML 10 ML VIAL IV ONE (16:32)
[2023-09-01] VITALS (10 sets, daily range): BP systolic 99–143; BP diastolic 46–75; PULSE 62–130; RESP 12–24; TEMP 99–100.7; O2SAT 97–100
[2023-09-01 05:32] LABS: BASOPHILS % (AUTO) 0.2 % (0.0-2.0); EOSINOPHILS % (AUTO) 4.3 % (1.0-6.0); HEMATOCRIT 31.5 % (41-53); HEMOGLOBIN 10.3 g/dL (13.5-17.5); LYMPHOCYTES # (AUTO) 0.9 K/uL (1.0-4.8); LYMPHOCYTES % (AUTO) 14.3 % (22.0-44.0); MEAN CORPUSCULAR HEMOGLOBIN 29.5 pg (26.0-34.0); MEAN CORPUSCULAR HGB CONC 32.7 G/dL (31.0-37.0); MEAN CORPUSCULAR VOLUME 90 fL (80-100); MONOCYTES # (AUTO) 0.9 K/uL (0.1-1.0); NEUTROPHILS # (AUTO) 4.2 K/uL (1.8-7.7); NEUTROPHILS % (AUTO) 67.2 % (40.0-70.0); PLATELET COUNT (AUTO) 168 K/uL (150-450); WHITE BLOOD COUNT (AUTO) 6.2 K/uL (4.5-11.0)
[2023-09-01 05:40] LABS: ANION GAP 9 mmol/L (8-16); CALCIUM, TOTAL 8.3 mg/dL (8.8-10.5); CARBON DIOXIDE 24 mmol/L (22-29); CHLORIDE 111 mmol/L (98-107); CREATININE 0.92 mg/dL (0.60-1.30); GLOMERULAR FILTR. RATE CALC > 60 mL/min (>60); GLUCOSE,RANDOM 114 mg/dL (70-110); POTASSIUM 3.3 mmol/L (3.5-5.1); SODIUM SERUM 144 mmol/L (136-145); UREA NITROGEN, BLOOD 16 mg/dL (7-18)
[2023-09-01] MEDS: BUMETANIDE 0.25 MG/ML 4 ML VIAL IVP SCH (08:48)
[2023-09-01 11:16] LABS: ABG BASE EXCESS -1.1 mmol/L (-2.0-3.0); ABG CARBOXYHEMOGLOBIN 0.2 % (0.0-1.5); ABG METHEMOGLOBIN 0.1 % (0.0-1.5); ABG OXYGEN CONTENT 17.2 mL/dL (15.0-23.0); ABG OXYGEN SATURATION 99.3 % (95.0-98.0); ABG PCO2 23 mmHg (35-45); ABG PH 7.574 (7.35-7.450); ABG TOTAL HEMOGLOBIN 12.1 G/dL (12.0-18.0); PO2, ARTERIAL BG 171.7 mmHg (79.0-87.0); SOURCE, BLOOD GAS ARTERIAL; TEMPERATURE, FAHRENHEIT, BG 100.7 FAHREN (96.0-98.6)
[2023-09-01 11:17] LABS: O2 DEVICE,BLOOD GAS VENTILATOR (ROOM AIR); PEEP,BG 5 cm H2O; PRESSURE SUPPORT, BG 0 cm H2O; SITE, BLOOD GAS ARTERIAL LINE; SPONTANEOUS VT, BG 1301 ml; VENT MODE, BG Press. Support Vent. (ROOM AIR)
[2023-09-02] VITALS (9 sets, daily range): BP systolic 88–134; BP diastolic 49–86; PULSE 60–92; RESP 17–26; TEMP 97.8–98.9; O2SAT 100
[2023-09-02] MEDS: HALOPERIDOL LACTATE 5 MG/ML VIAL IVP ONE ×2 (03:11→05:09)
[2023-09-02] MEDS: LORazepam 2 MG/ML VIAL IVP ONE (05:09)
[2023-09-02] MEDS: DAPAGLIFLOZIN PROPANEDIOL 5 MG TABLET NG SCH (09:00)
[2023-09-02 10:12] LABS: BASOPHILS % (AUTO) 0.3 % (0.0-2.0); EOSINOPHILS % (AUTO) 1.9 % (1.0-6.0); HEMATOCRIT 34.4 % (41-53); HEMOGLOBIN 11.1 g/dL (13.5-17.5); LYMPHOCYTES # (AUTO) 1.3 K/uL (1.0-4.8); LYMPHOCYTES % (AUTO) 15.4 % (22.0-44.0); MEAN CORPUSCULAR HEMOGLOBIN 29.1 pg (26.0-34.0); MEAN CORPUSCULAR HGB CONC 32.2 G/dL (31.0-37.0); MEAN CORPUSCULAR VOLUME 90 fL (80-100); MONOCYTES # (AUTO) 1.1 K/uL (0.1-1.0); MONOCYTES % (AUTO) 13.9 % (2.0-9.0); NEUTROPHILS # (AUTO) 5.6 K/uL (1.8-7.7); NEUTROPHILS % (AUTO) 68.5 % (40.0-70.0); PLATELET COUNT (AUTO) 211 K/uL (150-450); RED BLOOD CELL COUNT(AUTO) 3.81 MIL/uL (4.50-5.90); RED CELL DISTRIBUTION WIDTH 16.4 % (11.5-14.5); WHITE BLOOD COUNT (AUTO) 8.2 K/uL (4.5-11.0)
[2023-09-02 10:35] LABS: ANION GAP 10 mmol/L (8-16); CALCIUM, TOTAL 9.1 mg/dL (8.8-10.5); CARBON DIOXIDE 25 mmol/L (22-29); CHLORIDE 110 mmol/L (98-107); CREATININE 0.92 mg/dL (0.60-1.30); GLOMERULAR FILTR. RATE CALC > 60 mL/min (>60); GLUCOSE,RANDOM 105 mg/dL (70-110); POTASSIUM 4.3 mmol/L (3.5-5.1); SODIUM SERUM 145 mmol/L (136-145); UREA NITROGEN, BLOOD 21 mg/dL (7-18)
[2023-09-03] VITALS: PULSE 86; RESP 23; TEMP 98.5
[2023-09-03 04:00] VITALS: PULSE 89; RESP 20; TEMP 98.6
[2023-09-03 08:00] VITALS: BP 159/104; PULSE 95; RESP 18; TEMP 99
[2023-09-03] MEDS ORDERED: LORazepam 2 MG/ML VIAL ONE (09:06)
[2023-09-03 12:00] VITALS: BP 137/78; PULSE 101; RESP 21; TEMP 98.8
[2023-09-03 16:00] VITALS: BP 128/56; PULSE 97; RESP 11; TEMP 98.1
[2023-09-03] MEDS: LORazepam 2 MG/ML VIAL IVP PRN (17:20)
[2023-09-03 19:32] VITALS: BP 125/71; PULSE 79; RESP 22; TEMP 98
[2023-09-03] MEDS: LORazepam 2 MG/ML VIAL IVP ONE (21:32)
[2023-09-04 05:19] VITALS: BP 133/78; PULSE 91; RESP 20; TEMP 98.5
[2023-09-04 07:45] VITALS: BP 143/73; PULSE 92; RESP 18; TEMP 98.1
[2023-09-04] MEDS ORDERED: SODIUM CHLORIDE 0.9% 250 ML IV ONE (11:34)
[2023-09-04 11:40] VITALS: BP 105/61; PULSE 65; RESP 20; TEMP 98.2
[2023-09-04 15:47] VITALS: BP 119/68; PULSE 83; RESP 18; TEMP 98
[2023-09-04 20:00] VITALS: BP 120/89; PULSE 96; RESP 18; TEMP 98.8
[2023-09-05] VITALS: BP 110/80; PULSE 100; RESP 18; TEMP 98.6
[2023-09-05 04:08] VITALS: BP 119/89; PULSE 64; RESP 18; TEMP 98.8
[2023-09-05 07:27] LABS: BASOPHILS % (AUTO) 0.5 % (0.0-2.0); EOSINOPHILS % (AUTO) 1.2 % (1.0-6.0); HEMATOCRIT 38.9 % (41-53); HEMOGLOBIN 12.7 g/dL (13.5-17.5); LYMPHOCYTES # (AUTO) 2.3 K/uL (1.0-4.8); LYMPHOCYTES % (AUTO) 25.7 % (22.0-44.0); MEAN CORPUSCULAR HEMOGLOBIN 29.5 pg (26.0-34.0); MEAN CORPUSCULAR HGB CONC 32.8 G/dL (31.0-37.0); MEAN CORPUSCULAR VOLUME 90 fL (80-100); MONOCYTES # (AUTO) 0.9 K/uL (0.1-1.0); MONOCYTES % (AUTO) 10.1 % (2.0-9.0); NEUTROPHILS # (AUTO) 5.6 K/uL (1.8-7.7); NEUTROPHILS % (AUTO) 62.5 % (40.0-70.0); PLATELET COUNT (AUTO) 313 K/uL (150-450); RED BLOOD CELL COUNT(AUTO) 4.32 MIL/uL (4.50-5.90); RED CELL DISTRIBUTION WIDTH 16.2 % (11.5-14.5)
[2023-09-05 07:42] LABS: ANION GAP 12 mmol/L (8-16); CALCIUM, TOTAL 9.8 mg/dL (8.8-10.5); CARBON DIOXIDE 27 mmol/L (22-29); CHLORIDE 105 mmol/L (98-107); CREATININE 1.04 mg/dL (0.60-1.30); GLOMERULAR FILTR. RATE CALC > 60 mL/min (>60); GLUCOSE,RANDOM 92 mg/dL (70-110); SODIUM SERUM 144 mmol/L (136-145); UREA NITROGEN, BLOOD 17 mg/dL (7-18)
[2023-09-05 07:57] VITALS: BP 128/73; PULSE 57; RESP 18; TEMP 98
[2023-09-05] MEDS: BUMETANIDE 1 MG TABLET PO SCH (09:00)
[2023-09-05] MEDS: LOSARTAN POTASSIUM 25 MG TABLET PO SCH (09:40)
[2023-09-05] MEDS: SPIRONOLACTONE 25 MG TABLET PO SCH (09:41)
[2023-09-05 12:25] VITALS: BP 118/86; PULSE 70; RESP 18; TEMP 98.2
[2023-09-05 16:22] VITALS: BP 114/80; PULSE 83; RESP 18; TEMP 97.9
[2023-09-05] MEDS: POTASSIUM CHLORIDE 20 MEQ ER TABLET PO PRN (18:27)
[2023-09-05 20:30] VITALS: BP 131/70; PULSE 91; RESP 18; TEMP 97.7
[2023-09-05] MEDS: CARVEDILOL 3.125 MG TABLET NG SCH (20:44)
[2023-09-06 00:20] VITALS: BP 103/66; PULSE 74; RESP 18; TEMP 97.7
[2023-09-06 04:20] VITALS: BP 101/66; PULSE 86; RESP 18; TEMP 97.8
[2023-09-06 06:25] LABS: ANION GAP 8 mmol/L (8-16); CALCIUM, TOTAL 9.3 mg/dL (8.8-10.5); CARBON DIOXIDE 26 mmol/L (22-29); CHLORIDE 108 mmol/L (98-107); CREATININE 0.94 mg/dL (0.60-1.30); GLOMERULAR FILTR. RATE CALC > 60 mL/min (>60); GLUCOSE,RANDOM 106 mg/dL (70-110); SODIUM SERUM 142 mmol/L (136-145); UREA NITROGEN, BLOOD 17 mg/dL (7-18)
[2023-09-06 07:40] VITALS: BP 102/55; PULSE 88; RESP 19; TEMP 98
== END 2023-09-06 11:25 | disposition left against medical advice (07) | DRG 130 ==
LOC: EMS 08:12 → ICUN 09:09 → ICU 12:35 → 5S 09-03 18:55
PROVIDERS: ADMIT Internal Medicine; ATTEND Internal Medicine
PROC: 5A1955Z Respiratory Ventilation, Greater than 96 Consecutive Hours (ICD-10-PCS; principal; 2023-08-27)
PROC: 0BH17EZ Insertion of Endotracheal Airway into Trachea, Via Natural or Artificial Opening (ICD-10-PCS; 2023-08-27)
PROC: 5A12012 Performance of Cardiac Output, Single, Manual (ICD-10-PCS; 2023-08-27)
PROC: 05HY33Z Insertion of Infusion Device into Upper Vein, Percutaneous Approach (ICD-10-PCS; 2023-08-29)
PROC: 04HY32Z Insertion of Monitoring Device into Lower Artery, Percutaneous Approach (ICD-10-PCS; 2023-08-29)
DX: J96.01 Acute respiratory failure with hypoxia (principal); I46.9 Cardiac arrest, cause unspecified; G93.41 Metabolic encephalopathy; I50.43 Acute on chronic combined systolic (congestive) and diastolic (congestive) heart failure; N17.9 Acute kidney failure, unspecified; I13.0 Hypertensive heart and chronic kidney disease with heart failure and stage 1 through stage 4 chronic kidney disease, or unspecified chronic kidney disease; J96.02 Acute respiratory failure with hypercapnia; Z20.822 Contact with and (suspected) exposure to COVID-19; Z99.11 Dependence on respirator [ventilator] status; I73.9 Peripheral vascular disease, unspecified; N18.9 Chronic kidney disease, unspecified; F33.1 Major depressive disorder, recurrent, moderate; E87.4 Mixed disorder of acid-base balance; E87.6 Hypokalemia; I47.20 Ventricular tachycardia, unspecified; E78.00 Pure hypercholesterolemia, unspecified; Z87.891 Personal history of nicotine dependence; Z53.29 Procedure and treatment not carried out because of patient's decision for other reasons; Z89.612 Acquired absence of left leg above knee
CPT/HCPCS: 36245; 36569; 36600; 70450; 71045; 76770; 76937; 80048; 80053; 80307; 81001; 82550; 82805; 83735; 83880; 84100; 84132; 84484; 85025; 85610; 85730; 87040; 87070; 87081; 87205; 92526; 92610; 93005; 93306; 94002; 94003; 94640; 97163; 99285; C8924; C9113; G0378; J0696; J1630; J1644; J2060; J2370; J2704; J3480; J3490; J7040; J7050; J7060; Q9967; 36415-L1; 36415-TC; 82803-TC; J7613

== ENCOUNTER 2024-04-14 20:54 | Inpatient (IN) | payer OTHER ==
[~2024-04-14] VITALS: Ht 180.3 cm; Wt 80.0 kg
[~2024-04-14 20:54] MED LIST changes: +CALCIUM CHLORIDE 100 MG/ML 10 ML SYRINGE IVP ONE; +DEXTROSE 50%-WATER 25 GM/50 ML SYRINGE IVP ONE; +EPINEPHrine 1:10,000 [1 MG/10 ML] SYRINGE ONE; +GABA-1181 PO; +LIDOCAINE/PF 2% 5 ML SYRINGE IVP ONE; +SODIUM BICARBONATE [ADULT] 8.4% 50 MEQ/50 ML SYRINGE IVP ONE
[2024-04-14 21:00] VITALS: PULSE 136; RESP 41; O2SAT 94
[2024-04-14] MEDS ORDERED: NITROGLYCERIN 50 MG/D5% WATER 250 ML IV PRN (21:15)
[2024-04-14] MEDS ORDERED: 0.9% SODIUM CHLORIDE 10 ML SYRINGE IVP PRN (21:15)
[2024-04-14 21:27] LABS: ABG BASE EXCESS -14.5 mmol/L (-2.0-3.0); ABG HCO3 14.4 mmol/L (21.0-28.0); ABG METHEMOGLOBIN 0.2 % (0.0-1.5); ABG OXYGEN CONTENT 16.2 mL/dL (15.0-23.0); ABG OXYGEN SATURATION 95.4 % (94.0-98.0); ABG OXYHEMOGLOBIN 94.3 % (94.0-98.0); ABG PCO2 26 mmHg (32.0-48.0); ABG PH 7.284 (7.350-7.450); ABG TOTAL HEMOGLOBIN 12.1 G/dL (13.5-17.5); SOURCE, BLOOD GAS ARTERIAL; TEMPERATURE, FAHRENHEIT, BG 97.8 FAHREN (96.0-98.6)
[2024-04-14] MEDS ORDERED: ONDANSETRON HCL 4 MG/2 ML VIAL IVP PRN (21:30)
[2024-04-14] MEDS ORDERED: ACETAMINOPHEN 325 MG TABLET PO PRN (21:30)
[2024-04-14] MEDS ORDERED: ALBUTEROL SULFATE 2.5 MG/0.5 ML NEB SOLUTION NEB PRN (21:30)
[2024-04-14] MEDS ORDERED: IPRATROPIUM BROMIDE 0.5 MG/2.5 ML NEB SOLUTION NEB PRN (21:30)
[2024-04-14] MEDS: MORPHINE SULFATE 4 MG/ML SYRINGE IVP ONE ×2 (21:41→23:08)
[2024-04-14] MEDS: FUROSEMIDE 40 MG/4 ML VIAL IVP ONE (21:41)
[2024-04-14] MEDS: NITROGLYCERIN 2% (1 GM=INCH) OINTMENT PACKET TP SCH (21:41)
[2024-04-14] MEDS: CefTRIAXone 1 GM/DEXTROSE 50 ML IV ONE (21:42)
[2024-04-14 21:43] LABS: ALLEN TEST, BLOOD GAS Positive; SITE, BLOOD GAS LFT RADIAL
[2024-04-14 21:44] LABS: ABG A-A DIFF O2 597.7 mmHg (10-20.0); INSPIRATORY TIME, BG 0.9 SEC; O2 DEVICE,BLOOD GAS BIPAP (ROOM AIR)
[2024-04-14 21:49] LABS: EOSINOPHILS % (AUTO) 0.2 % (1.0-6.0); HEMATOCRIT 39.4 % (41-53); HEMOGLOBIN 11.6 g/dL (13.5-17.5); LYMPHOCYTES # (AUTO) 1.7 K/uL (1.0-4.8); LYMPHOCYTES % (AUTO) 20.3 % (22.0-44.0); MEAN CORPUSCULAR HEMOGLOBIN 25.6 pg (26.0-34.0); MEAN CORPUSCULAR HGB CONC 29.4 G/dL (31.0-37.0); MEAN CORPUSCULAR VOLUME 87 fL (80-100); MONOCYTES # (AUTO) 0.4 K/uL (0.1-1.0); MONOCYTES % (AUTO) 4.8 % (2.0-9.0); NEUTROPHILS # (AUTO) 6.1 K/uL (1.8-7.7); NEUTROPHILS % (AUTO) 73.7 % (40.0-70.0); PLATELET COUNT (AUTO) 303 K/uL (150-450); RED BLOOD CELL COUNT(AUTO) 4.52 MIL/uL (4.50-5.90); RED CELL DISTRIBUTION WIDTH 19.9 % (11.5-14.5); WHITE BLOOD COUNT (AUTO) 8.3 K/uL (4.5-11.0)
[2024-04-14] MEDS: CHLORHEXIDINE GLUCONATE 2% TOWELETTE [2'S/6'S] TP SCH (21:58)
[2024-04-14 22:00] LABS: ALBUMIN 2.9 g/dL (3.4-5.0); ANION GAP 17 mmol/L (8-16); CALCIUM, TOTAL 9.1 mg/dL (8.8-10.5); CARBON DIOXIDE 16 mmol/L (22-29); CHLORIDE 104 mmol/L (98-107); CREATININE 1.48 mg/dL (0.60-1.30); GLOMERULAR FILTR. RATE CALC 58 mL/min (>60); GLUCOSE,RANDOM 108 mg/dL (70-110); POTASSIUM 4.1 mmol/L (3.5-5.1); SODIUM SERUM 137 mmol/L (136-145); UREA NITROGEN, BLOOD 19 mg/dL (7-18)
[2024-04-14 22:11] LABS: LACTIC ACID 8.7 mmol/L (0.4-2.0)
[2024-04-14 22:13] LABS: B-TYPE NATRIURETIC PEPTIDE > 5000 pg/mL (0-100)
[2024-04-14 22:15] LABS: ALANINE AMINOTRANSFERASE 19 U/L (12-78); ALKALINE PHOSPHATASE 105 U/L (46-116); ASPARTATE AMINOTRANSFERASE 22 U/L (15-37); TOTAL PROTEIN, SERUM 8.4 g/dL (6.4-8.2)
[2024-04-14] MEDS ORDERED: NALOXONE HCL 10 MG in DEXTROSE 5%-WATER 240 ML IV PRN (22:15)
[2024-04-14 22:17] LABS: TROPONIN I-HIGH SENSITIVITY 54 ng/L (<76)
[2024-04-14] MEDS: MethylPREDNISolone SOD SUCC 125 MG/2 ML VIAL IVP SCH (22:22)
[2024-04-14] MEDS: SODIUM CHLORIDE 0.9% 250 ML IV ONE (22:29)
[2024-04-14] MEDS: NITROGLYCERIN 50 MG/D5% WATER 250 ML IV PRN (22:38)
[2024-04-14 23:15] LABS: APPEARANCE,URINE CLEAR (CLEAR); BILIRUBIN,URINE NEGATIVE (NEGATIVE); COLOR,URINE YELLOW (YELLOW); GLUCOSE, URINE (UA) NEGATIVE (NEGATIVE); KETONES,URINE NEGATIVE (NEGATIVE); LEUKOCYTE ESTERASE ,URINE NEGATIVE (NEGATIVE); NITRATE,URINE NEGATIVE (NEGATIVE); OCCULT BLOOD,URINE SMALL (NEGATIVE); PH,URINE 5.5 (5.0-8.0); PROTEIN,URINE 100-200,SEE CONFIRM mg/dL (NEGATIVE); SPECIFIC GRAVITIY, URINE 1.014 (1.003-1.030)
[2024-04-14 23:30] LABS: RBC,URINE 0-2 /HPF (0-2); SULFOSALICYLIC ACID,URINE 2+ (Negative); WBC,URINE 0-2 /HPF (0-5)
[2024-04-14 23:31] LABS: BACTERIA,URINE Few /HPF (None Seen); YEAST,URINE Rare /HPF (None Seen)
[2024-04-14] MEDS: HEPARIN SODIUM,PORCINE 5,000 UNITS/ML VIAL SQ SCH (23:35)
[2024-04-14] MEDS: KETAMINE HCL 50 MG/ML 10 ML VIAL IVP ONE (23:57)
[2024-04-14] MEDS ORDERED: ROCURONIUM BROMIDE 10 MG/ML 5 ML VIAL ONE (23:59)
[2024-04-15] MEDS ORDERED: NOREPINEPHRINE 8 MG/0.9 % NACL 250 ML IV ONE (00:17)
[2024-04-15] MEDS: GLUCAGON,HUMAN RECOMBINANT 1 MG VIAL SQ ONE (00:24)
[2024-04-15] MEDS: SODIUM CHLORIDE 77 MEQ in DEXTROSE 10%-WATER 1,000 ML IV SCH (00:28)
[2024-04-15] MEDS ORDERED: GLUCAGON,HUMAN RECOMBINANT 1 MG VIAL SQ ONE (00:30)
[2024-04-15] MEDS ORDERED: SODIUM CHLORIDE 0.9% 500 ML IV ONE (00:48)
[2024-04-15 00:50] VITALS: PULSE 90; RESP 20; O2SAT 0
[2024-04-15 01:27] LABS: PH,URINE DRUG SCREEN 5.5 (5.0-8.0)
[2024-04-15 01:49] LABS: ABG BASE EXCESS -23.5 mmol/L (-2.0-3.0); ABG CARBOXYHEMOGLOBIN 0.2 % (0.5-1.5); ABG HCO3 6.4 mmol/L (21.0-28.0); ABG OXYGEN CONTENT 5.5 mL/dL (15.0-23.0); ABG OXYHEMOGLOBIN 32.2 % (94.0-98.0); ABG TOTAL HEMOGLOBIN 12.1 G/dL (13.5-17.5); SOURCE, BLOOD GAS ARTERIAL; TEMPERATURE, FAHRENHEIT, BG 96.4 FAHREN (96.0-98.6)
[2024-04-15] MEDS ORDERED: DOPamine 400MG/D5W[STANDARD] 250 ML IV ONE (02:23)
[2024-04-15 02:35] LABS: ABG PCO2 94 mmHg (32.0-48.0); ABG PH 6.729 (7.350-7.450)
[2024-04-15 02:36] LABS: ABG A-A DIFF O2 584.9 mmHg (10-20.0); ABG OXYGEN SATURATION 32.6 % (94.0-98.0); O2 DEVICE,BLOOD GAS VENT (ROOM AIR); PO2, ARTERIAL BG 37.6 mmHg (83.0-108.0); SITE, BLOOD GAS ARTERIAL LINE
[2024-04-15 02:37] LABS: PEEP,BG 5 cm H2O; VT, ABG 450 ml
[2024-04-15] MEDS: ALBUMIN HUMAN 5%-12.5GM/250ML 250 ML IV ONE (03:22)
[2024-04-15 03:33] LABS: ABG BASE EXCESS -24.9 mmol/L (-2.0-3.0); ABG CARBOXYHEMOGLOBIN 0.2 % (0.5-1.5); ABG HCO3 5.6 mmol/L (21.0-28.0); ABG METHEMOGLOBIN 0.4 % (0.0-1.5); ABG OXYGEN CONTENT 5.2 mL/dL (15.0-23.0); ABG OXYHEMOGLOBIN 32.9 % (94.0-98.0); ABG TOTAL HEMOGLOBIN 11.1 G/dL (13.5-17.5); SOURCE, BLOOD GAS ARTERIAL; TEMPERATURE, FAHRENHEIT, BG 97.9 FAHREN (96.0-98.6)
[2024-04-15] MEDS: NOREPINEPHRINE 8 MG/0.9 % NACL 250 ML IV PRN (03:35)
[2024-04-15 03:40] VITALS: PULSE 89; RESP 28; O2SAT 0
[2024-04-15 03:54] LABS: ABG PH 6.677 (7.350-7.450)
[2024-04-15 03:55] LABS: ABG OXYGEN SATURATION 33.1 % (94.0-98.0); ABG PCO2 101 mmHg (32.0-48.0); PO2, ARTERIAL BG 39.6 mmHg (83.0-108.0); SITE, BLOOD GAS ARTERIAL LINE
[2024-04-15 03:56] LABS: ABG A-A DIFF O2 573.4 mmHg (10-20.0); O2 DEVICE,BLOOD GAS VENT (ROOM AIR); PEEP,BG 5 cm H2O; VT, ABG 450 ml
[2024-04-15 04:28] LABS: CALCIUM, TOTAL 10.3 mg/dL (8.8-10.5); CREATININE 2.05 mg/dL (0.60-1.30); POTASSIUM 3.4 mmol/L (3.5-5.1)
[2024-04-15 04:29] LABS: BASOPHILS % (AUTO) 0.5 % (0.0-2.0); EOSINOPHILS % (AUTO) 0.2 % (1.0-6.0); HEMATOCRIT 34.4 % (41-53); HEMOGLOBIN 9.9 g/dL (13.5-17.5); LYMPHOCYTES # (AUTO) 1.2 K/uL (1.0-4.8); MEAN CORPUSCULAR HEMOGLOBIN 25.9 pg (26.0-34.0); MEAN CORPUSCULAR HGB CONC 28.7 G/dL (31.0-37.0); MEAN CORPUSCULAR VOLUME 90 fL (80-100); MONOCYTES # (AUTO) 0.3 K/uL (0.1-1.0); MONOCYTES % (AUTO) 2.7 % (2.0-9.0); NEUTROPHILS # (AUTO) 9.1 K/uL (1.8-7.7); PLATELET COUNT (AUTO) 225 K/uL (150-450); RED BLOOD CELL COUNT(AUTO) 3.82 MIL/uL (4.50-5.90); RED CELL DISTRIBUTION WIDTH 19.8 % (11.5-14.5); WHITE BLOOD COUNT (AUTO) 10.7 K/uL (4.5-11.0)
[2024-04-15 04:35] LABS: NEUTROPHILS % (AUTO) 85.6 % (40.0-70.0)
[2024-04-15] MEDS: SODIUM BICARBONATE [ADULT] 8.4% 50 MEQ/50 ML SYRINGE IVP ONE (04:45)
[2024-04-15 05:31] LABS: TROPONIN I-HIGH SENSITIVITY 126 ng/L (<76)
[2024-04-15 07:05] VITALS: PULSE 86; RESP 30; O2SAT 69
[2024-04-15 08:05] VITALS: BP 86/60; PULSE 68; RESP 30; TEMP 88.7; O2SAT 66
[2024-04-15 08:16] LABS: ALCOHOL, URINE DRUG SCREEN NEGATIVE (NEGATIVE); AMPHET/METH SCREEN,URINE NEGATIVE (NEGATIVE); BARBITURATE SCREEN, URINE NEGATIVE (NEGATIVE); BENZODIAZEPINES SCREEN,URINE NEGATIVE (NEGATIVE); CANNABINOID SCREEN,URINE POSITIVE (NEGATIVE); COCAINE SCREEN,URINE POSITIVE (NEGATIVE); METHADONE SCREEN, URINE NEGATIVE (NEGATIVE); OPIATE SCREEN,URINE POSITIVE (NEGATIVE); PHENCYCLIDINE SCREEN,URINE NEGATIVE (NEGATIVE)
[2024-04-15] MEDS: DOPamine 400MG/D5W[STANDARD] 250 ML IV PRN (08:41)
[2024-04-15] MEDS: ATORVASTATIN CALCIUM 20 MG TABLET PO SCH (09:00)
[2024-04-15] MEDS: GABAPENTIN 300 MG CAPSULE PO SCH (09:00)
[2024-04-15] MEDS: ASPIRIN 81 MG DR TABLET PO SCH (09:00)
[2024-04-15] MEDS: DOCUSATE SODIUM 100 MG CAPSULE PO SCH (09:00)
[2024-04-15] MEDS: ALBUMIN HUMAN 25%-25GM/100ML 100 ML IV SCH (09:01)
[2024-04-15 09:02] VITALS: BP 72/53; PULSE 83
[2024-04-15] MEDS: PHENYLEPHRINE 200 MG/D5%-WATER 250 ML IV PRN (09:02)
[2024-04-15] MEDS: VASOPRESSIN 40 UNITS in DEXTROSE 5%-WATER 98 ML IV PRN (09:02)
[2024-04-15 09:11] LABS: ABG METHEMOGLOBIN 0.3 % (0.0-1.5); SOURCE, BLOOD GAS ARTERIAL
[2024-04-15] MEDS ORDERED: EPINEPHrine 1:10,000 [1 MG/10 ML] SYRINGE ONE (09:24)
[2024-04-15 09:25] LABS: ABG BASE EXCESS -0.9 mmol/L (-2.0-3.0); ABG CARBOXYHEMOGLOBIN 1.1 % (0.5-1.5); ABG HCO3 21.4 mmol/L (21.0-28.0); ABG OXYGEN CONTENT 4.8 mL/dL (15.0-23.0); ABG OXYGEN SATURATION 34.1 % (94.0-98.0); ABG OXYHEMOGLOBIN 33.6 % (94.0-98.0); ABG PCO2 82 mmHg (32.0-48.0); ABG PH 7.138 (7.350-7.450); ABG TOTAL HEMOGLOBIN 10.1 G/dL (13.5-17.5); PO2, ARTERIAL BG 20.7 mmHg (83.0-108.0); SITE, BLOOD GAS AL
[2024-04-15] MEDS ORDERED: EPINEPHrine 5 MG in DEXTROSE 5%-WATER 245 ML IV PRN (10:15)
[2024-04-15 10:56] LABS: GLUCOMETER DEV NAME(LOC) ERT.6; GLUCOSE,POINT OF CARE 106 MG/DL (70-110)
[2024-04-15 10:56] LABS: GLUCOMETER DEV NAME(LOC) ERT.6; GLUCOSE,POINT OF CARE 28 MG/DL (70-110)
[2024-04-15 10:56] LABS: GLUCOMETER DEV NAME(LOC) ERT.6; GLUCOSE,POINT OF CARE 114 MG/DL (70-110)
== END 2024-04-15 10:03 | DRG 720 ==
LOC: EMS 20:54 → EDH 22:48 → ICU 04-15 07:40
PROVIDERS: ADMIT Internal Medicine; ATTEND Internal Medicine
PROC: 0BH17EZ Insertion of Endotracheal Airway into Trachea, Via Natural or Artificial Opening (ICD-10-PCS; principal; 2024-04-14)
PROC: 06HY33Z Insertion of Infusion Device into Lower Vein, Percutaneous Approach (ICD-10-PCS; 2024-04-14)
PROC: 5A09357 Assistance with Respiratory Ventilation, Less than 24 Consecutive Hours, Continuous Positive Airway Pressure (ICD-10-PCS; 2024-04-14)
PROC: 5A1935Z Respiratory Ventilation, Less than 24 Consecutive Hours (ICD-10-PCS; 2024-04-15)
PROC: 5A12012 Performance of Cardiac Output, Single, Manual (ICD-10-PCS; 2024-04-15)
DX: A41.9 Sepsis, unspecified organism (principal); J96.01 Acute respiratory failure with hypoxia; I46.9 Cardiac arrest, cause unspecified; J69.0 Pneumonitis due to inhalation of food and vomit; G93.41 Metabolic encephalopathy; R65.21 Severe sepsis with septic shock; R57.0 Cardiogenic shock; I50.43 Acute on chronic combined systolic (congestive) and diastolic (congestive) heart failure; J15.69 Pneumonia due to other Gram-negative bacteria; E11.22 Type 2 diabetes mellitus with diabetic chronic kidney disease; D64.9 Anemia, unspecified; N17.9 Acute kidney failure, unspecified; I13.0 Hypertensive heart and chronic kidney disease with heart failure and stage 1 through stage 4 chronic kidney disease, or unspecified chronic kidney disease; I16.9 Hypertensive crisis, unspecified; I25.10 Atherosclerotic heart disease of native coronary artery without angina pectoris; N18.30 Chronic kidney disease, stage 3 unspecified; E78.00 Pure hypercholesterolemia, unspecified; E11.51 Type 2 diabetes mellitus with diabetic peripheral angiopathy without gangrene; Z91.199 Patient's noncompliance with other medical treatment and regimen due to unspecified reason; Z99.11 Dependence on respirator [ventilator] status; Z87.891 Personal history of nicotine dependence
CPT/HCPCS: 36600; 71045; 80048; 80053; 80307; 81001; 81002; 82805; 82962; 83605; 83735; 83880; 84145; 84484; 85025; 87040; 92950; 93005; 94002; 94660; 99285; J0171; J0696; J1265; J1610; J1644; J1940; J2270; J2370; J2919; J3490; J7040; J7060; J7131; P9041; P9046; 36415-L1; 36415-TC